=== PATIENT | male | born 1975 | race Caucasian/White ===

== ENCOUNTER → 2017-04-19 | Outpatient (CLI) | payer OTHER | LOC: HYPER 07:13 | DX: T81.89XA Other complications of procedures, not elsewhere classified, initial encounter (principal); G61.82 Multifocal motor neuropathy; Z87.891 Personal history of nicotine dependence ==

== ENCOUNTER → 2017-05-08 | Outpatient (CLI) | payer OTHER | LOC: HYPER 06:58 | DX: T81.89XD Other complications of procedures, not elsewhere classified, subsequent encounter (principal); G61.82 Multifocal motor neuropathy; Z87.891 Personal history of nicotine dependence; Y83.8 Other surgical procedures as the cause of abnormal reaction of the patient, or of later complication, without mention of misadventure at the time of the procedure ==